=== PATIENT | male | born 1950 | race Caucasian/White ===

== ENCOUNTER 2018-09-21 12:11 | Observation (INO) ==
[2018-09-21] MEDS ORDERED: Morphine Sulfate Inj 2 MG/ML Vial IV.PUSH ONE ×2 (12:42→20:54)
[2018-09-21] MEDS ORDERED: Diphtheria/Tetanus/Pertussis Vaccine Inj 0.5 ML Syringe IM ONE (12:42)
--- NOTE | 2018-09-21 12:47 | ED ---
HPI General Chief complaint: Weakness Stated complaint: Fall Time Seen by Provider: 09/21/18 12:32 Source: patient, family, EMS and RN notes reviewed Mode of arrival: EMS History of Present Illness HPI narrative: 68yM presenting with fall and facial droop. The patient is visiting from [place] and says that he had a CVA in December of this year, took "a pill for a while but I don't have any more left" and cannot remember the name, and does not have a local PMD or neurologist. He has residual RLE weakness and slight left facial droop from this CVA and uses a cane to ambulate at baseline. As per his family, 2-3 days ago the patient began to have difficulty keeping food/ drink in his mouth and may have had a slight worsening of his left facial droop and some slurred speech since then. This morning, he attempted to get out of bed when his "legs gave out from under me", causing him to fall to the floor. He reports LLE weakness (new), which he attributes to "sciatica pain". He denies head injury or LOC, confusion, difficulty with word finding, visual disturbance, or numbness. He does not take aspirin or Plavix. He is unsure of when his last tetanus booster was. Related Data Home Medications Medication Instructions Recorded Confirmed finasteride [Proscar] 5 mg PO DAILY 09/21/18 09/21/18 gabapentin 600 mg PO DAILY 09/21/18 09/21/18 gemfibrozil [Lopid] 600 mg PO DAILY 09/21/18 09/21/18 insulin glargine [Lantus U-100 50 unit SUBCUT BID 09/21/18 09/21/18 Insulin] isosorbide mononitrate 30 mg PO DAILY 09/21/18 09/21/18 losartan-hydrochlorothiazide 1 tab PO DAILY 09/21/18 09/21/18 metformin 500 mg PO DAILY 09/21/18 09/21/18 simvastatin 40 mg PO QPM 09/21/18 09/21/18 Allergies Allergy/AdvReac Type Severity Reaction Status Date / Time No Known Allergies Allergy Verified 09/21/18 13:09 Review of Systems ROS: all other systems reviewed are negative PMFSH History History Provided By: Patient and Family Member Medical History Medical History Chronic pain (Acute) Diabetes (Acute) Diabetic neuropathy, type I diabetes mellitus (Acute) Elevated cholesterol (Acute) Sciatic leg pain (Acute) Hypertension (Acute) CVA (cerebral vascular accident) (Chronic) Surgical History Surgical History History of ankle surgery (Acute) Social History Social History Substance History: No History of Abuse Second Hand Smoke Exposure: No Smoking Status: Never smoker How Often Do You Have a Drink Containing Alcohol: Never Recent Travel in [facility] within the Last 8 Weeks: No Recent Out of Country Travel within the Last 8 Weeks: No Exam Const General: healthy appearing and no acute distress HENMT Head: normocephalic and atraumatic Face and sinus: normal facial exam Other: Well-healed scar to left orthodox (patient is unsure what this was from) Left-sided lower facial droop that spares eyebrows, mild dysarthria Tongue midline Eyes General: appearance normal, both eyes and all related structures Pupils: PERRL Chest Chest: normal inspection of the chest Resp Effort & Inspection: normal respiratory effort Auscultation: no rhonchi and no wheezes Cardio Rate: regular rate Rhythm: regular rhythm GI Inspection: non-distended Palpation: soft and nontender Skin Other: Abrasions to bilateral knees Neuro General: alert, awake and oriented x3 Other: Please see NIHSS as documented on arrival Answers questions appropriately, follows all commands Motor strength 5/5 in bilateral upper extremities, right hip/ knee flexion/ extension, bilateral foot plantar/dorsiflexion, 3+ to 4-/5 in left hip and knee flexion/ extension, no foot drop Sensation intact to bilateral lower extremities Psych Affect: normal affect Course Initial Documented Vital Signs Pulse Rate 67 09/21/18 12:40 Pulse Oximetry 98 09/21/18 12:40 Last Documented Vital Signs Temperature 98.1 F 09/21/18 12:51 Pulse Rate 61 09/21/18 15:07 Respiratory Rate 16 09/21/18 15:11 Blood Pressure 119/67 09/21/18 15:07 Pulse Oximetry 99 09/21/18 15:07 NIH Stroke Scale NIHSS Time Completed NIHSS Time Completed: 12:32 NIH Stroke Scale Level of Consciousness: 0-Alert Orientation Questions: 0-Answers both correct Responds to Commands: 0-Both tasks correct Gaze Eye Movement: 0-Horizontal movement WNL Visual Shepard: 0-No visual field defect Facial Movement: 2-Partial facial palsy Motor Functions Arm LEFT: 0-No drift Motor Functions Arm RIGHT: 0-No drift Motor Functions Leg LEFT: 2-Falls before 5 seconds Motor Functions Leg RIGHT: 0-No drift Limb Ataxia: 0-No ataxia Sensory Loss: 0-No sensory loss Best Language: 0-Normal Articulation: 1-Mild dysarthia Extinction or Inattention Sensory: 0-Absent Total: 5 Medical Decision Making MDM Narrative Medical decision making narrative: Assessment: 68yM presenting with fall, worsening facial droop/ dysarthria, left lower extremity weakness Plan: A stroke alert was NOT called as the onset of symptoms was 2-3 days ago EKG and monitor Labs CXR, X-ray bilateral knees CTH, CTA head and neck Addendum: Patient's workup shows no significant lab abnormalities, small non- stenotic lesion at left carotid bulb and old left thalamic infarct, otherwise no new abnormalities. The patient continues to have left-sided facial droop, dysarthria, and LLE weakness. He will need further workup including MRI brain. The patient and his niece understand and agree with plan. Case discussed with hospitalist service. Medical Screen Exam Complete: Yes Emergency Medical Condition: Yes Differential Diagnosis Differential Diagnosis: Differential diagnosis includes, but is not limited to: CVA, TIA, traumatic injury, arrhythmia. Symptoms not consistent with Montemayor's palsy. Lab Data Lab results reviewed: Yes I reviewed the patient's lab results. Result diagrams: 09/21/18 12:15 09/21/18 12:15 Lab Results 09/21/18 09/21/18 09/21/18 Range/Units 12:15 12:15 12:15 CBC w Diff Auto diff final WBC 9.2 (4.0-11.0) th/mm3 RBC 4.80 (4.50-5.90) mil/mm3 Hgb 12.9 L (13.0-17.0) gm/dL Hct 38.7 L (39.0-51.0) % MCV 80.6 (80.0-100.0) fL MCH 26.8 L (27.0-34.0) pg MCHC 33.3 (32.0-36.0) % RDW 12.4 (11.6-17.2) % Plt Count 340 (150-450) th/mm3 MPV 8.9 (7.0-11.0) fL Neut % (Auto) 67.5 (16.0-70.0) % Lymph % (Auto) 20.6 (9.0-44.0) % Robertson % (Auto) 9.5 H (0.0-8.0) % Eos % (Auto) 1.9 (0.0-4.0) % Baso % (Auto) 0.5 (0.0-2.0) % Neut # (Auto) 6.2 (1.8-7.7) th/mm3 Lymph # (Auto) 1.9 (1.0-4.8) th/mm3 Robertson # (Auto) 0.9 (0.0-0.9) th/mm3 Eos # (Auto) 0.2 (0.0-0.4) th/mm3 Baso # (Auto) 0.0 (0.0-0.2) th/mm3 WBC Differential . Differential Comment . PT 10.1 (9.8-11.6) sec INR 1.0 Ratio APTT 24.3 (23.4-31.7) sec Sodium 140 (136-145) meq/L Potassium 4.0 (3.5-5.1) meq/L Chloride 103 (98-107) meq/L Carbon Dioxide 29.4 (21.0-32.0) meq/L Anion Gap 8 (5-15) meq/L BUN 25 H (7-18) mg/dL Creatinine 1.20 (0.60-1.30) mg/dL Estimated GFR 60 L (>89) mL/min Random Glucose 94 (74-106) mg/dL Calcium 9.1 (8.5-10.1) mg/dL Total Creatine Kinase 81 (39-308) U/L Troponin I Less than 0.02 L (0.02-0.05) ng/mL Imaging Data Radiologist's impression: Chest X-Ray 09/21/18 12:42 CONCLUSION: No acute abnormality is seen. Head CT 09/21/18 12:42 CONCLUSION: 1. No acute abnormality is seen. 2. Mild atrophy. 3. Suspected old lacunar infarct at the left thalamus. . Head CTA 09/21/18 12:42 CONCLUSION: Negative CTA of the head. . Knee X-Ray 09/21/18 12:42 CONCLUSION: No acute abnormality is seen. Knee X-Ray 09/21/18 12:42 CONCLUSION: No acute abnormality. Neck CTA 09/21/18 12:42 CONCLUSION: Mild plaque at the carotid bulb regions without a significant stenosis. ECG Data Attestation: I personally reviewed and interpreted this ECG as follows: Interpretation: Rate: 62 BPM Rhythm: Sinus [place]: Left Intervals: Non-specific IVCD, QTc 410 ms Q waves: III, aVF T waves: Inverted in V4-V6 ST segments: No elevations or depressions Impression: Lateral ischemic changes, no previous EKG available for comparison. Discharge Plan Discharge Disposition Patient Disposition: ED Admit(ED Internal Use Only) Discharge Condition Condition: Stable Discharge Details Diagnosis: Facial droop, Dysarthria, Left leg weakness Physicians Team ED Provider: Jania Bey Primary Care Provider: UNKNOWN, Rxs /Orders / Referrals /Forms Prescriptions: No Action gabapentin 600 mg Tablet 600 mg PO DAILY RF: 0 isosorbide mononitrate 30 mg Tablet Extended Release 24 Hr 30 mg PO DAILY RF: 0 simvastatin 40 mg Tablet 40 mg PO QPM RF: 0 losartan-hydrochlorothiazide 100-25 mg Tablet 1 tab PO DAILY RF: 0 gemfibrozil [Lopid] 600 mg Tablet 600 mg PO DAILY RF: 0 finasteride [Proscar] 5 mg Tablet 5 mg PO DAILY RF: 0 metformin 500 mg Tablet 500 mg PO DAILY RF: 0 insulin glargine [Lantus U-100 Insulin] 100 unit/mL Solution 50 unit SUBCUT BID RF: 0 Discharge Interventions Interventions: Vital Signs Last Done: 09/21/18 15:07 Status ED Status: Pending Admission
[2018-09-21 13:00] LABS: Baso % (Auto) 0.5 % (0.0-2.0); Eos # (Auto) 0.2 th/mm3 (0.0-0.4); Eos % (Auto) 1.9 % (0.0-4.0); Hematocrit 38.7 % (39.0-51.0); Hemoglobin 12.9 gm/dL (13.0-17.0); Lymph # (Auto) 1.9 th/mm3 (1.0-4.8); Lymph % (Auto) 20.6 % (9.0-44.0); Mean Corpuscular HGB Conc 33.3 % (32.0-36.0); Mean Corpuscular Hemoglobin 26.8 pg (27.0-34.0); Mean Corpuscular Volume 80.6 fL (80.0-100.0); Mean Platelet Volume 8.9 fL (7.0-11.0); Mono # (Auto) 0.9 th/mm3 (0.0-0.9); Mono % (Auto) 9.5 % (0.0-8.0); Neut # (Auto) 6.2 th/mm3 (1.8-7.7); Neut % (Auto) 67.5 % (16.0-70.0); Platelet Count 340 th/mm3 (150-450); Red Cell Distribution Width 12.4 % (11.6-17.2); White Blood Count 9.2 th/mm3 (4.0-11.0)
[2018-09-21 13:14] LABS: Chloride 103 meq/L (98-107); Sodium 140 meq/L (136-145)
[2018-09-21 13:17] LABS: Anion Gap 8 meq/L (5-15); Calcium 9.1 mg/dL (8.5-10.1); Carbon Dioxide 29.4 meq/L (21.0-32.0); Glucose,Random 94 mg/dL (74-106)
[2018-09-21 13:18] LABS: Blood Urea Nitrogen 25 mg/dL (7-18)
[2018-09-21 13:21] LABS: Glomerular Filtration Rate 60 mL/min (>89)
[2018-09-21 13:29] LABS: Activated Partial Thrombo Time 24.3 sec (23.4-31.7); Prothrombin Time 10.1 sec (9.8-11.6)
--- NOTE | 2018-09-21 13:42 | XR ---
EXAM DATE: 09/21/2018 1:32 PM EST AGE/SEX: 68 years / Male INDICATIONS: Fall CLINICAL DATA: This is the patient's initial encounter. Patient reports that signs and symptoms have been present for 3 days and indicates a pain score of 10/10. MEDICAL/SURGICAL HISTORY: Non-responsive. Non-responsive. COMPARISON: No prior exams available for comparison. FINDINGS: The heart size is enlarged. The lungs are grossly clear. No effusion is seen. The bony structures lashawn ear grossly intact. CONCLUSION: No acute abnormality is seen. Electronically signed by: Jose Sears MD 09/21/2018 1:41 PM EST
--- NOTE | 2018-09-21 13:43 | XR ---
EXAM DATE: 09/21/2018 1:36 PM EST AGE/SEX: 68 years / Male INDICATIONS: Fall CLINICAL DATA: This is the patient's initial encounter. Patient reports that signs and symptoms have been present for 3 days and indicates a pain score of 10/10. MEDICAL/SURGICAL HISTORY: Non-responsive. Non-responsive. COMPARISON: . FINDINGS: The knee joint is normally aligned. No fracture is seen. No effusion is seen. There some spurring at the anterior aspect of the patella. There are spurs be some hypertrophic change or an osteochondroma off the posterior aspect of the proximal tibia. Vascular calcifications are seen. There are some hype rtrophic change at the anterior tibial tubercle. CONCLUSION: No acute abnormality is seen. Electronically signed by: Jose Sears MD 09/21/2018 1:42 PM EST
[2018-09-21 13:44] LABS: Creatine Kinase 81 U/L (39-308)
--- NOTE | 2018-09-21 13:45 | XR ---
EXAM DATE: 09/21/2018 1:37 PM EST AGE/SEX: 68 years / Male INDICATIONS: Fell CLINICAL DATA: This is the patient's initial encounter. Patient reports that signs and symptoms have been present for 3 days and indicates a pain score of 10/10. MEDICAL/SURGICAL HISTORY: Non-responsive. Non-responsive. COMPARISON: No prior exams available for comparison. FINDINGS: The knee joint is aligned. No fracture is seen. No effusion is seen. There is mild spurring at the an terior superior aspect of the patella. There also appears to be some hypertrophic change at the poste rior aspect of the tibia. Scattered vascular calcifications are seen. CONCLUSION: No acute abnormality. Electronically signed by: Jose Sears MD 09/21/2018 1:43 PM EST
[2018-09-21] MEDS: Sod Chloride 0.9% Inj 1,000 ML IV.CONT SCH (13:53)
--- NOTE | 2018-09-21 14:08 | CT ---
EXAM DATE: 09/21/2018 1:50 PM EST AGE/SEX: 68 years / Male INDICATIONS: Left sided facial droop. CLINICAL DATA: This is the patient's initial encounter. Patient reports that signs and symptoms have been present for 3 days and indicates a pain score of 0/10. MEDICAL/SURGICAL HISTORY: Cerebrovascular disease. Hypertension. None. RADIATION DOSE: 58.69 CTDI (mGy) COMPARISON: No prior exams available for comparison. TECHNIQUE: CT of the head without contrast. Using automated exposure control and adjustment of the mA and/or kV according to patient size, radiation dose was kept as low as reasonably achievable to ob tain optimal diagnostic quality images. DICOM format image data is available electronically for revi ew and comparison. FINDINGS: Cerebrum: The ventricles are normal for age. There is some widening of the cortical sulci. There ap pears to be an old lacunar infarct at the left thalamus. No evidence of midline shift, mass lesion, h emorrhage or acute infarction. No extraaxial fluid collections are seen. Posterior Fossa: The cerebellum and brainstem are intact. The 4th ventricle is midline. The cerebe llopontine angle is unremarkable. Extracranial: The visualized portion of the orbits is intact. Skull: The calvaria is intact. No evidence of skull fracture. CONCLUSION: 1. No acute abnormality is seen. 2. Mild atrophy. 3. Suspected old lacunar infarct at the left thalamus. . Electronically signed by: Jose Sears MD 09/21/2018 2:07 PM EST
--- NOTE | 2018-09-21 14:23 | CT ---
EXAM DATE: 09/21/2018 2:19 PM EST AGE/SEX: 68 years / Male INDICATIONS: Left sided facial droop. CLINICAL DATA: This is the patient's initial encounter. Patient reports that signs and symptoms have been present for 3 days and indicates a pain score of 0/10. MEDICAL/SURGICAL HISTORY: Cerebrovascular disease. Hypertension. None. RADIATION DOSE: 56.54 CTDI (mGy) ; Combined studies ; Patient body habitus COMPARISON: No prior exams available for comparison. TECHNIQUE: Volumetric scanning was performed using a multi-row detector CT scanner during bolus infu ky of 85 ml Visipaque 320 (iodixanol) nonionic water-soluble contrast as a cumulative dose for mul tiple exams. The data was post processed with a variety of visualization algorithms including full volume maximum intensity projection, multi-planar sliding thin slab reformation, curved planar reform ation, and surface rendering techniques. Using automated exposure control and adjustment of the mA a nd/or kV according to patient size, radiation dose was kept as low as reasonably achievable to obtain optimal diagnostic quality images. DICOM format image data is available electronically for review a nd comparison. FINDINGS: There is excellent visualization of the major intracranial arteries out to the second-order branch ve ssels. There is no evidence for aneurysm, vessel truncation or stenosis, and no evidence for vascula r malformation. CONCLUSION: Negative CTA of the head. . Electronically signed by: Jose Sears MD 09/21/2018 2:22 PM EST
--- NOTE | 2018-09-21 14:36 | CT ---
EXAM DATE: 09/21/2018 2:31 PM EST AGE/SEX: 68 years / Male INDICATIONS: Left sided facial droop. CLINICAL DATA: This is the patient's initial encounter. Patient reports that signs and symptoms have been present for 3 days and indicates a pain score of 0/10. MEDICAL/SURGICAL HISTORY: Cerebrovascular disease. Hypertension. None. RADIATION DOSE: 56.54 CTDI (mGy) ; Combined studies COMPARISON: No prior exams available for comparison. TECHNIQUE: Volumetric scanning was performed using a multirow detector CT scanner during bolus infus ion of 85 ml Visipaque 320 (iodixanol) nonionic water-soluble contrast as a cumulative dose for mult iple exams. The data was postprocessed with a variety of visualization algorithms including full-vo lume maximum intensity projection, multiplanar sliding thin-slab reformation, curved-planar reformati on, and surface-rendering techniques. Using automated exposure control and adjustment of the mA and/ or kV according to patient size, radiation dose was kept as low as reasonably achievable to obtain op timal diagnostic quality images. DICOM format image data is available electronically for review and comparison. FINDINGS: Aortic Arch: There is a three-vessel origin of the great vessels from the aorta. No evidence of ost ial narrowing. The left vertebral artery arises directly from the aorta just proximal to the left sub clavian artery. This is a normal variant. Right Carotid: The common carotid artery is intact. There is mild calcified plaque at the carotid bu lb region without a significant stenosis. The internal carotid artery lumen is smooth without stenosi s. The external carotid artery is intact. Left Carotid: The common carotid artery is intact. There is mild calcified plaque at the carotid bu lb region without a significant stenosis. The internal carotid artery lumen is smooth without stenos is. The external carotid artery is intact. Vertebrals: The vertebral arteries have a symmetric diameter. No stenotic lesions are seen. Percent stenosis is calculated using the diameter of the stenotic region over the diameter of the nor mal distal internal carotid artery. CONCLUSION: Mild plaque at the carotid bulb regions without a significant stenosis. Electronically signed by: Jose Sears MD 09/21/2018 2:34 PM EST
[2018-09-21] MEDS ORDERED: Dextrose 50% in Water 50 ML Vial IV.PUSH PRN (15:38)
--- NOTE | 2018-09-21 15:55 | P.HP ---
History of Present Illness Primary Care Physician: UNKNOWN Chief Complaint: Fall at home History of Present Illness: 68-year-old male with known history of CVA, hypertension, hyperlipidemia, diabetes, chronic back pain who presented to the hospital for evaluation of fall at home today. Patient does not speak much Sami, information was taken from medical records, nursing staff, interpreted by Enrrique zheng. Patient does have a long-standing history of chronic medical illnesses with chronic back pain, recent stroke in December of this year. Patient is originally from [place] and is here at this time. Apparently he has been having problems with his chronic back pain and he went to [facility] week ago in [place] was discharged home. Then roughly 3 days ago he noticed that he had worsening neurological symptoms with difficulty in speech, difficulty eating and swallowing food, weakness of the left upper and lower extremities. Patient's previous stroke left him with residual weakness of the right upper and lower extremities. As indicated by ER physician that family said that they noted she was not able to keep food in his mouth and water was dripping out of his mouth. However patient was trying to walk today and he fell so they brought him to the hospital for evaluation. Patient had CT scans done which were unremarkable for any acute stroke. It is recommended that the patient be admitted the hospital for further neurological workup. - Diagnosis (1) Acute CVA (cerebrovascular accident) (2) Facial droop (3) Dysarthria (4) Left leg weakness Review of Systems All other systems reviewed negative except as stated in HPI Ears, Nose, Mouth, and Throat: Reports difficulty swallowing Musculoskeletal: Reports abnormal walking, Reports back pain, Reports muscle weakness Neurologic: Reports abnormal speech, Reports abnormal walking, Reports lack of coordination, Reports localized weakness PMFSH - History History Provided By: Patient - Medical History Medical History: Medical History (Last Reviewed 09/21/18 @ 15:44 by JV Ko) Chronic pain Diabetes Diabetic neuropathy, type I diabetes mellitus Elevated cholesterol Sciatic leg pain Hypertension CVA (cerebral vascular accident) - Surgical History Surgical History: Surgical History (Last Reviewed 09/21/18 @ 15:44 by JV Ko) History of ankle surgery - Family History Family History: Family History (Last Reviewed 09/21/18 @ 15:44 by JV Ko) Other Family history of colon cancer Family history of diabetes mellitus - Tobacco History Second Hand Smoke Exposure: No Tobacco Use In Past 30 Days: No Smoking Status: Never smoker - Alcohol History How Often Do You Have a Drink Containing Alcohol: Never - Substance Use History Substance History: No History of Abuse - Travel History Recent Travel in the [place] Within the Last 8 Weeks: No Recent Travel Out of the Country Within the Last 8 Weeks: No - Immunization History Tetanus Immunization: >5 Years Medications and Allergies Active Medications: Active Medications Sodium Chloride (Ns Inj) 1,000 mls @ 70 mls/hr IV.CONT .[id number] MJ Last Admin: 09/21/18 13:53 Dose: 70 mls/hr Allergies Allergy/AdvReac Type Severity Reaction Status Date / Time No Known Allergies Allergy Verified 09/21/18 13:09 Home Medications Medication Instructions Recorded Confirmed Type finasteride [Proscar] 5 mg PO DAILY 09/21/18 09/21/18 History gabapentin 600 mg PO DAILY 09/21/18 09/21/18 History gemfibrozil [Lopid] 600 mg PO DAILY 09/21/18 09/21/18 History insulin glargine [Lantus U-100 50 unit SUBCUT BID 09/21/18 09/21/18 History Insulin] isosorbide mononitrate 30 mg PO DAILY 09/21/18 09/21/18 History losartan-hydrochlorothiazide 1 tab PO DAILY 09/21/18 09/21/18 History metformin 500 mg PO DAILY 09/21/18 09/21/18 History simvastatin 40 mg PO QPM 09/21/18 09/21/18 History Exam Vital signs: Vital Signs 09/21/18 12:40 09/21/18 12:51 09/21/18 14:00 Temperature 98.1 F Pulse Rate 67 66 70 Respiratory Rate 16 16 Blood Pressure 138/75 144/62 H Pulse Oximetry 98 98 99 09/21/18 15:07 09/21/18 15:11 Temperature Pulse Rate 61 Respiratory Rate 16 16 Blood Pressure 119/67 Pulse Oximetry 99 Intake & Output 09/20/18 09/21/18 09/21/18 18:59 06:59 18:59 Weight 110 kg Narrative: GENERAL: Well-developed, well-nourished, in no acute distress. alert and orientated HEENT: Head is normocephalic without any lesions or masses noted. Obvious left facial droop. Eyes: Pupils equal round reactive to light. Extraocular muscles are intact. Conjunctivae were clear. Oropharyngeal: Pharynx without any erythema edema tongue deviates to the left. Buccal mucosa is moist without any masses or lesions NECK: Supple without any masses. Trachea midline no deviation. No JVD, no bruits are appreciated CARDIAC: Regular rhythm, regular rate. S1/S2 are heard. No murmurs gallops or rubs. LUNGS: Clear to auscultation bilaterally. No wheeze, rhonchi or rales. No use of accessory muscles on inspiration or expiration. ABDOMEN: Soft, nontender. Nondistended. Bowel sounds heard in all 4 quadrants. No organomegaly or masses. Negative rebound, negative guarding EXTREMITIES: No edema, pulses are equal bilaterally. No cyanosis or clubbing NEUROLOGY: Mood and affect appear appropriate. 4/5 strength in the right upper and lower extremities. 2/5 strength in the left upper and lower extremities. Results - Labs CBC & Chem 7: 09/21/18 12:15 09/21/18 12:15 Labs: Laboratory Results - last 24 hr 09/21/18 09/21/18 09/21/18 12:15 12:15 12:15 CBC w Diff Auto diff final WBC 9.2 RBC 4.80 Hgb 12.9 L Hct 38.7 L MCV 80.6 MCH 26.8 L MCHC 33.3 RDW 12.4 Plt Count 340 MPV 8.9 Neut % (Auto) 67.5 Lymph % (Auto) 20.6 [place] % (Auto) 9.5 H Eos % (Auto) 1.9 Baso % (Auto) 0.5 Neut # (Auto) 6.2 Lymph # (Auto) 1.9 [place] # (Auto) 0.9 Eos # (Auto) 0.2 Baso # (Auto) 0.0 WBC Differential . Differential Comment . PT 10.1 INR 1.0 APTT 24.3 Sodium 140 Potassium 4.0 Chloride 103 Carbon Dioxide 29.4 Anion Gap 8 BUN 25 H Creatinine 1.20 Estimated GFR 60 L Random Glucose 94 Calcium 9.1 Total Creatine Kinase 81 Troponin I Less than 0.02 L - Imaging Impressions Chest X-Ray 09/21/18 12:42 CONCLUSION: No acute abnormality is seen. Head CT 09/21/18 12:42 CONCLUSION: 1. No acute abnormality is seen. 2. Mild atrophy. 3. Suspected old lacunar infarct at the left thalamus. . Head CTA 09/21/18 12:42 CONCLUSION: Negative CTA of the head. . Knee X-Ray 09/21/18 12:42 CONCLUSION: No acute abnormality is seen. Knee X-Ray 09/21/18 12:42 CONCLUSION: No acute abnormality. Neck CTA 09/21/18 12:42 CONCLUSION: Mild plaque at the carotid bulb regions without a significant stenosis. Caprini VTE Risk Assessment Caprini VTE Risk Assessment: Moderate/High Risk (score >= 2) Caprini Risk Assessment Model: Point Value = 1 Point Value = 2 Point Value = 3 Point Value = 5 Age 41-60 Minor surgery BMI > 25 kg/m2 Swollen legs Varicose veins or History of unexplained or recurrent spontaneous Oral contraceptives or hormone replacement Sepsis (< 1 month) Serious lung disease, including pneumonia (< 1 month) Abnormal pulmonary function Acute myocardial infarction Congestive heart failure (< 1 month) History of inflammatory bowel disease Medical patient at bed rest Age 61-74 Arthroscopic surgery Major open surgery (> 45 min) Laparoscopic surgery (> 45 min) Malignancy Confined to bed (> 72 hours) Immobilizing plaster cast Central venous access Age >= 75 History of VTE Family history of VTE Factor V Leiden Prothrombin [id number] Lupus anticoagulant Anticardiolipin antibodies Elevated serum homocysteine Heparin-induced thrombocytopenia Other congenital or acquired thrombophilia Stroke (< 1 month) Elective arthroplasty Hip, pelvis, or leg fracture Acute spinal cord injury (< 1 month) Prophylaxis Regimen: Total Risk Factor Score Risk Level Prophylaxis Regimen 0-1 Low Early ambulation 2 Moderate Order ONE of the following: *Sequential Compression Device (SCD) *Heparin 5000 units SQ BID 3-4 Higher Order ONE of the following medications: *Heparin 5000 units SQ TID *Enoxaparin/Lovenox 40 mg SQ daily (WT < 150 kg, CrCl > 30 mL/min) *Enoxaparin/Lovenox 30 mg SQ daily (WT < 150 kg, CrCl > 10-29 mL/min) *Enoxaparin/Lovenox 30 mg SQ BID (WT < 150 kg, CrCl > 30 mL/min) AND/OR *Sequential Compression Device (SCD) 5 or more Highest Order ONE of the following medications: *Heparin 5000 units SQ TID (Preferred with Epidurals) *Enoxaparin/Lovenox 40 mg SQ daily (WT < 150 kg, CrCl > 30 mL/min) *Enoxaparin/Lovenox 30 mg SQ daily (WT < 150 kg, CrCl > 10-29 mL/min) *Enoxaparin/Lovenox 30 mg SQ BID (WT < 150 kg, CrCl > 30 mL/min) AND *Sequential Compression Device (SCD) Assessment and Plan - Assessment (1) Acute CVA (cerebrovascular accident) Code(s): I63.9 - Cerebral infarction, unspecified Status: Acute (2) Facial droop Code(s): R29.810 - Facial weakness Status: Acute (3) Dysarthria Code(s): R47.1 - Dysarthria and anarthria Status: Acute (4) Left leg weakness Code(s): R29.898 - Other symptoms and signs involving the musculoskeletal system Status: Acute - Plan Acute CVA -Patient presented with 3-day history of left-sided weakness, dysphagia, dysarthria -Patient does have history of CVA in December 2017, patient is not on any antiplatelet treatment at this time. Patient did have residual symptoms of right-sided weakness. -CT of the brain did indicate an old lacunar infarct in the left thalamus, nothing acute -CTA of the head and neck does not indicate any acute abnormality -Awaiting MRI of the brain for further evaluation -We will request echocardiogram -We will check further laboratory studies to include B12, folate, sed rate, TSH , hemoglobin A1c, lipid panel, RPR -PT/OT/ST evaluations Diabetes -Awaiting hemoglobin A1c -We will start diabetic diet once cleared by speech therapy -Accu-Cheks with sliding scale insulin Hypertension, hyperlipidemia -Awaiting lipid panel -Resume statin Chronic back pain -Resume home medications DVT prevention -Sequential compression devices
[2018-09-21] MEDS: Aspirin 325 MG Tablet PO SCH (16:22)
--- NOTE | 2018-09-21 17:03 | MR ---
EXAM DATE: 09/21/2018 4:56 PM EST AGE/SEX: 68 years / Male INDICATIONS: Left sided weakness. Left facial droop. CLINICAL DATA: This is the patient's initial encounter. Patient reports that signs and symptoms have been present for 1 day and indicates a pain score of 0/10. MEDICAL/SURGICAL HISTORY: Diabetes mellitus type II. Hypertension. Hypercholesterolemia. Tons illectomy. COMPARISON: [facility], CT HEAD W/O CONTRAST, 09/21/2018. . TECHNIQUE: Multiplanar, multisequence examination of the brain was performed without contrast. FINDINGS: Cerebrum: There is an area of acute infarction seen at the posterior limb of the internal capsule on the right side measuring 1.1 x 0.5 cm. There is an old lacunar infarct at the left thalamus. The cor tical sulci are widened. The ventricles are normal for age. No evidence of midline shift, mass lesio n, hemorrhage or acute infarction. No extraaxial fluid collections are seen. The pituitary gland an d suprasellar cistern are normal in configuration. White Matter: There are scattered areas of increased signal seen in the cerebral white matter Posterior Fossa: The cerebellum and brainstem are intact. The 4th ventricle is midline. The cerebel lopontine angle is unremarkable. The cerebellar tonsils are normal in position. Diffusion Imaging: Again noted is the focal area of acute infarction at the posterior limb of the ri ght internal capsule. Extracranial: The visualized portions of the orbits and paranasal sinuses are unremarkable. There ar e scattered areas of increased signal seen within the mastoid air cells. CONCLUSION: 1. Small area of acute infarction involving the posterior limb of the internal capsule on the right. 2. Old lacunar infarct at the left thalamus. 3. Mild atrophy. 4. Scattered areas of demyelination likely secondary to small vessel ischemic change. Electronically signed by: Jose Sears MD 09/21/2018 5:02 PM EST
[2018-09-21 18:50] LABS: Creatine Kinase 109 U/L (39-308)
[2018-09-21] MEDS ORDERED: Sodium Chlor 0.9% Inj 500 ML IV.SIG SCH (22:13)
[2018-09-22 00:25] LABS: Bilirubin,Urine Negative (Negative); Clarity,Urine Clear (Clear); Color,Urine Yellow (Yellw/Straw); Glucose,Urine (UA) Negative (Negative); Nitrite,Urine Negative (Negative); PH,Urine 5.5 (5.0-8.5)
[2018-09-22 00:26] LABS: Leukocyte Esterase,Urine Negative (Negative); RBC,Urine 0-3 /hpf (0-3); Squamous Epithelial Cell,Urine 0-5 /hpf (0-5); Urobilinogen,Urine 0.2 mg/dL (Less than 2); WBC,Urine 0-5 /hpf (0-5)
[2018-09-22 00:34] LABS: Creatine Kinase 116 U/L (39-308)
[2018-09-22] MEDS: Sod Chloride 0.9% Inj 1,000 ML IV.CONT SCH ×2 (04:10→20:39)
[2018-09-22] MEDS: Morphine Sulfate Inj 2 MG/ML Vial IV.PUSH PRN ×6 (04:55→23:55)
--- NOTE | 2018-09-22 10:06 | P.PNIM ---
Subjective Interval history: 68-year-old [place] male who was seen examined today for follow-up on acute CVA. Patient still with significant left-sided weakness, left facial droop. Patient still undergoing neurological workup at this time. In light of stroke. Patient remains afebrile. Physical Exam Vital signs: Vital Signs 09/21/18 12:40 09/21/18 12:51 09/21/18 14:00 Temperature 98.1 F Pulse Rate 67 66 70 Respiratory Rate 16 16 Blood Pressure 138/75 144/62 H Pulse Oximetry 98 98 99 09/21/18 15:07 09/21/18 15:11 09/21/18 15:58 Temperature Pulse Rate 61 62 Respiratory Rate 16 16 Blood Pressure 119/67 Pulse Oximetry 99 09/21/18 16:01 09/21/18 16:31 09/21/18 18:23 Temperature Pulse Rate 67 63 58 L Respiratory Rate 16 16 Blood Pressure 101/72 133/72 Pulse Oximetry 96 99 09/21/18 20:00 09/21/18 21:38 09/22/18 00:00 Temperature 96.3 F L 97.3 F L 96.6 F L Pulse Rate 62 63 61 Respiratory Rate 20 20 20 Blood Pressure 140/69 123/64 181/87 H Pulse Oximetry 97 96 98 09/22/18 01:38 09/22/18 03:38 09/22/18 04:00 Temperature 96.7 F L 97.6 F Pulse Rate 60 67 62 Respiratory Rate 20 20 Blood Pressure 179/88 H 176/79 H Pulse Oximetry 98 98 09/22/18 05:38 09/22/18 08:00 Temperature 97.0 F L Pulse Rate 65 65 Respiratory Rate 20 Blood Pressure 167/69 H Pulse Oximetry Intake & Output 09/21/18 09/22/18 09/22/18 18:59 06:59 18:59 Intake Total 0 / 0 1500 / 1500 Output Total 0 / 0 700 / 700 Balance 0 / 0 800 / 800 Weight 112.7 kg 113.3 kg Intake: IV 1500 / 1500 NS Inj 1,000 ML @ 70 mls/hr IV. 1000 / 1000 CONT .[id number] MJ Rx#: [id number] NS Inj 500 ML @ 1000 mls/hr IV. 500 / 500 SIG BOLUS MJ Rx#:[id number] Oral 0 / 0 Output: Urine 0 / 0 700 / 700 Other: # Voids 3 Date of Last Bowel Movement 09/20/18 09/20/18 09/20/18 Weight On Admission 109.769 kg Narrative: GENERAL: Well-developed, well-nourished, in no acute distress. alert and orientated HEENT: Head is normocephalic without any lesions or masses noted. Obvious left facial droop. Eyes: Extraocular muscles are intact. Conjunctivae were clear. Oropharyngeal: Pharynx without any erythema edema tongue deviates to the left. Buccal mucosa is moist without any masses or lesions NECK: Supple without any masses. Trachea midline no deviation. No JVD CARDIAC: Regular rhythm, regular rate. S1/S2 are heard. No murmurs gallops or rubs. LUNGS: Clear to auscultation bilaterally. No wheeze, rhonchi or rales. No use of accessory muscles on inspiration or expiration. ABDOMEN: Soft, nontender. Nondistended. Bowel sounds heard in all 4 quadrants. No organomegaly or masses. Negative rebound, negative guarding EXTREMITIES: No edema, pulses are equal bilaterally. No cyanosis or clubbing NEUROLOGY: Mood and affect appear appropriate. 4/5 strength in the right upper and lower extremities. 2/5 strength in the left upper and lower extremities. Results - Labs CBC & Chem 7: 09/21/18 12:15 09/21/18 12:15 Laboratory Results - last 24 hr 09/21/18 09/21/18 09/21/18 12:15 12:15 12:15 CBC w Diff Auto diff final WBC 9.2 RBC 4.80 Hgb 12.9 L Hct 38.7 L MCV 80.6 MCH 26.8 L MCHC 33.3 RDW 12.4 Plt Count 340 MPV 8.9 Neut % (Auto) 67.5 Lymph % (Auto) 20.6 [place] % (Auto) 9.5 H Eos % (Auto) 1.9 Baso % (Auto) 0.5 Neut # (Auto) 6.2 Lymph # (Auto) 1.9 [place] # (Auto) 0.9 Eos # (Auto) 0.2 Baso # (Auto) 0.0 WBC Differential . Differential Comment . PT 10.1 INR 1.0 APTT 24.3 Sodium 140 Potassium 4.0 Chloride 103 Carbon Dioxide 29.4 Anion Gap 8 BUN 25 H Creatinine 1.20 Estimated GFR 60 L POC Glucose Random Glucose 94 Calcium 9.1 Total Creatine Kinase 81 Troponin I Less than 0.02 L Urine Color Urine Clarity Urine pH Ur Specific [place] Urine Protein Urine Glucose (UA) Urine Ketones Urine Occult Blood Urine Nitrate Urine Bilirubin Urine Urobilinogen Ur Leukocyte Esterase Urine RBC Urine WBC Ur Squamous Epith Cells Micro UA Comment Ur Microscopic Review Urine Culture Comments 09/21/18 09/21/18 09/21/18 17:45 18:20 22:09 CBC w Diff WBC RBC Hgb Hct MCV MCH MCHC RDW Plt Count MPV Neut % (Auto) Lymph % (Auto) [place] % (Auto) Eos % (Auto) Baso % (Auto) Neut # (Auto) Lymph # (Auto) [place] # (Auto) Eos # (Auto) Baso # (Auto) WBC Differential Differential Comment PT INR APTT Sodium Potassium Chloride Carbon Dioxide Anion Gap BUN Creatinine Estimated GFR POC Glucose 87 93 Random Glucose Calcium Total Creatine Kinase 109 Troponin I Less than 0.02 L Urine Color Urine Clarity Urine pH Ur Specific [place] Urine Protein Urine Glucose (UA) Urine Ketones Urine Occult Blood Urine Nitrate Urine Bilirubin Urine Urobilinogen Ur Leukocyte Esterase Urine RBC Urine WBC Ur Squamous Epith Cells Micro UA Comment Ur Microscopic Review Urine Culture Comments 09/22/18 09/22/18 00:00 00:00 CBC w Diff WBC RBC Hgb Hct MCV MCH MCHC RDW Plt Count MPV Neut % (Auto) Lymph % (Auto) [place] % (Auto) Eos % (Auto) Baso % (Auto) Neut # (Auto) Lymph # (Auto) [place] # (Auto) Eos # (Auto) Baso # (Auto) WBC Differential Differential Comment PT INR APTT Sodium Potassium Chloride Carbon Dioxide Anion Gap BUN Creatinine Estimated GFR POC Glucose Random Glucose Calcium Total Creatine Kinase 116 Troponin I Less than 0.02 L Urine Color Yellow Urine Clarity Clear Urine pH 5.5 Ur Specific [place] 1.020 Urine Protein Trace Urine Glucose (UA) Negative Urine Ketones Negative Urine Occult Blood Negative Urine Nitrate Negative Urine Bilirubin Negative Urine Urobilinogen 0.2 Ur Leukocyte Esterase Negative Urine RBC 0-3 Urine WBC 0-5 Ur Squamous Epith Cells 0-5 Micro UA Comment Culture not ind Ur Microscopic Review Microscopic reviewed Urine Culture Comments Culture not ind - Imaging Impressions Chest X-Ray 09/21/18 12:42 CONCLUSION: No acute abnormality is seen. Head CT 09/21/18 12:42 CONCLUSION: 1. No acute abnormality is seen. 2. Mild atrophy. 3. Suspected old lacunar infarct at the left thalamus. . Head CTA 09/21/18 12:42 CONCLUSION: Negative CTA of the head. . Knee X-Ray 09/21/18 12:42 CONCLUSION: No acute abnormality is seen. Knee X-Ray 09/21/18 12:42 CONCLUSION: No acute abnormality. Neck CTA 09/21/18 12:42 CONCLUSION: Mild plaque at the carotid bulb regions without a significant stenosis. Head MRI 09/21/18 14:53 CONCLUSION: 1. Small area of acute infarction involving the posterior limb of the internal capsule on the right. 2. Old lacunar infarct at the left thalamus. 3. Mild atrophy. 4. Scattered areas of demyelination likely secondary to small vessel ischemic change. Assessment and Plan - Assessment (1) Acute CVA (cerebrovascular accident) Code(s): I63.9 - Cerebral infarction, unspecified Status: Acute (2) Facial droop Code(s): R29.810 - Facial weakness Status: Acute (3) Dysarthria Code(s): R47.1 - Dysarthria and anarthria Status: Acute (4) Left leg weakness Code(s): R29.898 - Other symptoms and signs involving the musculoskeletal system Status: Acute - Plan Acute CVA -Patient presented with 3-day history of left-sided weakness, dysphagia, dysarthria -Patient does have history of CVA in December 2017, patient is not on any antiplatelet treatment at this time. Patient did have residual symptoms of right-sided weakness. -CT of the brain did indicate an old lacunar infarct in the left thalamus, nothing acute -CTA of the head and neck does not indicate any acute abnormality -MRI of the brain indicated small area of acute infarction involving the posterior limb of the internal capsule on the right. -Awaiting echocardiogram -Neurology is consulted for further recommendations -We will check further laboratory studies to include B12, folate, sed rate, TSH , hemoglobin A1c, lipid panel, RPR -PT/OT/ST evaluations -Holter monitor -Given the patient has had a previous left-sided stroke and now with a right- sided stroke, if echocardiogram is unremarkable may need to have a DAVID, as well as patient may need loop recorder placement -Continue full dose aspirin Diabetes -Awaiting hemoglobin A1c -We will start diabetic diet once cleared by speech therapy -Accu-Cheks with sliding scale insulin Hypertension, hyperlipidemia -Awaiting lipid panel -Resume statin Chronic back pain -Resume home medications DVT prevention -Sequential compression devices
[2018-09-22] MEDS: Gabapentin 300 MG Capsule PO SCH (10:21)
[2018-09-22] MEDS: Gemfibrozil 600 MG Tablet PO SCH (10:21)
[2018-09-22] MEDS: Isosorbide Mononitrate 30 MG ER 24HR Tablet (Imdur) PO SCH (10:21)
[2018-09-22] MEDS: Finasteride 5 MG Tablet PO SCH (10:22)
[2018-09-22] MEDS: Aspirin 325 MG Tablet PO SCH (10:22)
[2018-09-22 10:25] LABS: Chol/HDL Ratio 4.47 Ratio
--- NOTE | 2018-09-22 10:37 | ECHRPT ---
Indication: CVA/TIA CONCLUSIONS Normal left ventricular size. Mild concentric left ventricular hypertrophy. The left ventricular systolic function is normal with an estimated ejection fraction in the range of 55-60%. No definite regional wall motion abnormalities are present. Trileaflet aortic valve. Minimal aortic valve sclerosis is present. There is trace tricuspid valve regurgitation. The estimated pulmonary arterial pressure is 35 mmHg. BP: / HR: Rhythm: MEASUREMENTS (Male / Female) Normal Values Technical Quality:Fair 2D ECHO LV Diastolic Diameter PLAX 5.3 cm 4.2 - 5.9 / 3.9 - 5.3 cm LV Systolic Diameter PLAX 3.4 cm IVS Diastolic Thickness 1.2 cm 0.6 - 1.0 / 0.6 - 0.9 cm LVPW Diastolic Thickness 1.1 cm 0.6 - 1.0 / 0.6 - 0.9 cm LV Relative Wall Thickness 0.4 RV Internal Dim ED PLAX 3.1 cm LVOT Diameter 2.1 cm Aortic Root Diameter 3.5 cm LA Systolic Diameter LX 3.6 cm 3.0 - 4.0 / 2.7 - 3.8 cm M-MODE AV Cusp Separation MM 1.9 cm DOPPLER AV Peak Velocity 124.0 cm/s AV Peak Gradient 6.2 mmHg LVOT Peak Velocity 100.0 cm/s LVOT Peak Gradient 4.0 mmHg AV Area Cont Eq pk 2.8 cm Mitral E Point Velocity 78.5 cm/s Mitral A Point Velocity 104.0 cm/s Mitral E to A Ratio 0.8 LV E' Lateral Velocity 6.7 cm/s Mitral E to LV E' Lateral Ratio 11.7 LV E' Septal Velocity 4.9 cm/s Mitral E to LV E' Septal Ratio 16.1 TR Peak Velocity 251.0 cm/s TR Peak Gradient 25.2 mmHg Right Atrial Pressure 10.0 mmHg Pulmonary Artery Systolic Pressu 35.2 mmHg Right Ventricular Systolic Press 35.2 mmHg PV Peak Velocity 96.4 cm/s PV Peak Gradient 3.7 mmHg FINDINGS LEFT VENTRICLE Normal left ventricular size. Mild concentric left ventricular hypertrophy. The left ventricular systolic function is normal with an estimated ejection fraction in the range of 55-60%. No definite regional wall motion abnormalities are present. RIGHT VENTRICLE Normal right ventricular size and systolic function. LEFT ATRIUM The left atrial size is normal. RIGHT ATRIUM The right atrial size is normal. ATRIAL SEPTUM Normal atrial septal thickness without atrial level shunting by limited color doppler interrogation. AORTA The aortic root and proximal ascending aorta are normal in size on limited imaging. MITRAL VALVE Trace mitral valve regurgitation. AORTIC VALVE Trileaflet aortic valve. Minimal aortic valve sclerosis is present. TRICUSPID VALVE There is trace tricuspid valve regurgitation. The estimated pulmonary arterial pressure is 35 mmHg. PULMONARY VALVE No pulmonary valve regurgitation or stenosis. VESSELS The inferior vena cava is normal in size. PERICARDIUM There is a small pericardial effusion present. Compa Orta MD (Electronically Signed) Final Date:22 September 2018 10:35
[2018-09-22 11:04] LABS: Vitamin B12 301 pg/mL (193-986)
[2018-09-22 17:09] LABS: Hemoglobin A1c 13.3 % (4.3-6.0)
[2018-09-22] MEDS: Insulin NovoLOG Aspart Correctional Sugar Inj SQ PRN (20:41)
[2018-09-23] MEDS: Morphine Sulfate Inj 2 MG/ML Vial IV.PUSH PRN ×3 (04:39→21:04)
[2018-09-23] MEDS: Insulin NovoLOG Aspart Correctional Sugar Inj SQ PRN ×4 (07:24→21:05)
--- NOTE | 2018-09-23 07:33 | MB ---
cc: Janet Beatty MD DATE: 09/22/2018 REASON FOR CONSULTATION: Stroke. HISTORY OF PRESENT ILLNESS: This is a 68-year-old gentleman with a history of prior stroke, hypertension, hyperlipidemia, diabetes, chronic back pain; comes in because he started having some left-sided deficits, having trouble speaking. Apparently had a stroke in December when he was in [place]. I do not believe he takes aspirin. He had a new stroke in the right internal capsule on his recent MRI here in the hospital. SOCIAL HISTORY: He does not smoke or drink. MEDICATIONS: Medicines at home, please refer to the MAR, but is on: 1. Proscar. 2. Gabapentin. 3. Lopid. 4. Lantus. 5. Isosorbide mononitrate. 6. Losartan. 7. Hydrochlorothiazide. 8. Metformin. 9. Simvastatin. PHYSICAL EXAMINATION: VITAL SIGNS: Temperature 96.7, pulse 65, respiratory rate 20, blood pressure 168/83. NECK: Supple. HEART: Regular. NEUROLOGIC: He is awake and alert. Some mild dysarthria, mild left facial asymmetry. Visual mac are full. Tongue midline. Facial sensation normal. Motor: He does exhibit a mild drift left arm and left leg 4/5 proximally and distally. Sensory is normal. DTRs are trace to 1+. Toes withdraws. Cerebellar normal. Random movements, fine motor movements slower on the left then on the right. IMAGING STUDIES: 1. His echo shows EF of 55-60%. 2. MRI brain shows small acute infarct posterior limb of the internal capsule on the right and old lacune in the left thalamus with atrophy and white matter disease. 3. His neck CTA did not show any stenosis. 4. Head CTA: [place] without any intracranial disease. LABORATORY DATA: Sedimentation rate 19, hemoglobin 12.9. Chemistries: Triglycerides 190, cholesterol 215, LDL 129, HDL 48. B12 is 301. IMPRESSION: 1. A 68-year-old man with a history of diabetes. Hemoglobin A1c is still pending. 2. Hypertension. 3. Hyperlipidemia. 4. Stroke. Stroke is what is actually the admitting diagnosis. RECOMMENDATIONS: Recommend placing him on aspirin therapy, full dose. Start him on a statin. LDL should be below 70. Depending on what his hemoglobin A1c is, diabetes needs to be managed. Start controlling his blood pressure. Start him on B12 1000 mcg p.o. daily. PT, OT, speech therapy assessment. If he already has a bed at [facility] from my perspective, he can be discharged to rehab today. Risk factor modification highly encouraged. MD JONNA Becerril/khushbu/josé miguel , 01:14 PM , 01:22 PM
[2018-09-23] MEDS: Gemfibrozil 600 MG Tablet PO SCH (08:11)
[2018-09-23] MEDS: Gabapentin 300 MG Capsule PO SCH (08:11)
[2018-09-23] MEDS: Aspirin 325 MG Tablet PO SCH (08:11)
[2018-09-23] MEDS: Finasteride 5 MG Tablet PO SCH (08:11)
[2018-09-23] MEDS: Isosorbide Mononitrate 30 MG ER 24HR Tablet (Imdur) PO SCH (08:11)
--- NOTE | 2018-09-23 10:17 | ECG ---
Date Performed: 09/21/2018 Time Performed: 13:51:16 PTAGE: 68 years EKG: Sinus rhythm MARKED LEFT AXIS DEVIATION MODERATE INTRAVENTRICULAR CONDUCTION DELAY ABNORMAL ECG Left anterior fas cicular block Consider anterolateral ischemia and or injury pattern Clinical correlation is recommend ed NO PREVIOUS TRACING DOCTOR: Agapito Williamson Interpretating Date/Time 09/23/2018 10:16:45
--- NOTE | 2018-09-23 10:58 | P.PNIM ---
Subjective Interval history: Follow-up acute CVA. Patient seen and examined, lying in bed with complaints of left leg sciatica pain. Adjusted pain medications. No other complaints. Slept well. Eating well without any abdominal pain, nausea or vomiting. Vital signs stable. Afebrile. Awaiting [employer] authorization and placement at [facility]. Physical Exam Vital signs: Vital Signs 09/22/18 12:00 09/22/18 16:00 09/22/18 20:00 Temperature 96.1 F L 96.7 F L 97.3 F L Pulse Rate 67 67 64 Respiratory Rate 20 20 18 Blood Pressure 160/72 H 143/78 H 139/63 Pulse Oximetry 96 97 95 09/23/18 00:00 09/23/18 04:00 09/23/18 08:00 Temperature 98.5 F 96.5 F L 97.8 F Pulse Rate 69 67 66 Respiratory Rate 18 18 16 Blood Pressure 165/72 H 125/70 187/89 H Pulse Oximetry 96 95 97 Intake & Output 09/22/18 09/23/18 09/23/18 18:59 06:59 18:59 Intake Total 1120 / 1120 300 / 300 Output Total 850 / 850 700 / 700 Balance 270 / 270 -400 / -400 Weight 109.7 kg Intake: IV 1000 / 1000 NS Inj 1,000 ML @ 70 mls/hr IV. 1000 / 1000 CONT .[id number] MJ Rx#: [id number] Oral 120 / 120 300 / 300 Output: Urine 850 / 850 700 / 700 Stool 0 / 0 Other: # Voids 2 Date of Last Bowel Movement 09/20/18 Results - Labs CBC & Chem 7: 09/21/18 12:15 09/21/18 12:15 Laboratory Results - last 24 hr 09/22/18 09/22/18 09/22/18 05:15 05:15 11:15 POC Glucose Hemoglobin A1c 13.3 H Vitamin B12 301 Folate Greater than 20.0 H RPR Nonreactive 09/22/18 09/23/18 20:39 07:16 POC Glucose 218 H 217 H Hemoglobin A1c Vitamin B12 Folate RPR Assessment and Plan - Assessment (1) Acute CVA (cerebrovascular accident) Code(s): I63.9 - Cerebral infarction, unspecified Status: Acute (2) Facial droop Code(s): R29.810 - Facial weakness Status: Acute (3) Dysarthria Code(s): R47.1 - Dysarthria and anarthria Status: Acute (4) Left leg weakness Code(s): R29.898 - Other symptoms and signs involving the musculoskeletal system Status: Acute - Plan This is a 68-year-old male patient with: Acute CVA -Patient presented with 3-day history of left-sided weakness, dysphagia, dysarthria -Patient does have history of CVA in December 2017, patient is not on any antiplatelet treatment at this time. Patient did have residual symptoms of right-sided weakness. -CT of the brain did indicate an old lacunar infarct in the left thalamus, nothing acute -CTA of the head and neck does not indicate any acute abnormality -MRI of the brain indicated small area of acute infarction involving the posterior limb of the internal capsule on the right. -ECHO reviewed showing adequate EF, some LVH. There is trace tricuspid valve regurgitation. -Neurology is consulted, appreciate input and recommendations. -Laboratory studies to include B12, folate, sed rate, TSH, hemoglobin A1c, lipid panel, RPR added. -PT/OT/ST evaluations. -Holter monitor. -Continue full dose aspirin. Diabetes, uncontrolled -Hemoglobin A1c 13.3. -We will start diabetic diet once cleared by speech therapy -Accu-Cheks with sliding scale insulin Hypertension, hyperlipidemia -Uncontrolled lipids. -Resume statin Chronic back pain -Resume home medications DVT prevention -Sequential compression devices Discharge Planning: Awaiting [employer] authorization and [place] placement.
[2018-09-24] MEDS: Sod Chloride 0.9% Inj 1,000 ML IV.CONT SCH (00:28)
[2018-09-24] MEDS: Morphine Sulfate Inj 2 MG/ML Vial IV.PUSH PRN (06:17)
[2018-09-24] MEDS: Finasteride 5 MG Tablet PO SCH (08:40)
[2018-09-24] MEDS: Isosorbide Mononitrate 30 MG ER 24HR Tablet (Imdur) PO SCH (08:41)
[2018-09-24] MEDS: Aspirin 325 MG Tablet PO SCH (08:41)
[2018-09-24] MEDS: Gemfibrozil 600 MG Tablet PO SCH (08:41)
[2018-09-24] MEDS: Gabapentin 300 MG Capsule PO SCH (08:43)
[2018-09-24] MEDS: Insulin NovoLOG Aspart Correctional Sugar Inj SQ PRN (08:44)
[2018-09-24 09:58] VITALS: RESP 20; O2SAT 95
--- NOTE | 2018-09-24 11:44 | P.DS ---
Date of admission: 09/21/18 15:32 Primary care physician: UNKNOWN Anticipated date of discharge: 09/24/18 Brief History from admission: 68-year-old male with known history of CVA, hypertension, hyperlipidemia, diabetes, chronic back pain who presented to the hospital for evaluation of fall at home today. Patient does not speak much Croatian, information was taken from medical records, nursing staff, interpreted by Enrrique zheng. Patient does have a long-standing history of chronic medical illnesses with chronic back pain, recent stroke in December of this year. Patient is originally from [place] and is here at this time. Apparently he has been having problems with his chronic back pain and he went to [facility] week ago in [place] was discharged home. Then roughly 3 days ago he noticed that he had worsening neurological symptoms with difficulty in speech, difficulty eating and swallowing food, weakness of the left upper and lower extremities. Patient's previous stroke left him with residual weakness of the right upper and lower extremities. As indicated by ER physician that family said that they noted she was not able to keep food in his mouth and water was dripping out of his mouth. However patient was trying to walk today and he fell so they brought him to the hospital for evaluation. Patient had CT scans done which were unremarkable for any acute stroke. It is recommended that the patient be admitted the hospital for further neurological workup. Patient update on day of discharge: Follow-up CVA. Patient and examined, lying in bed comfortably no apparent distress. Niece at bedside assisting with translation. He is Micronesian- speaking. Denies any acute events overnight. He does complain of some back pain relieved with current pain regimen. Eating well without any nausea or vomiting. On a mechanical soft diet. Patient to be discharged to [facility] today. Blood pressure elevated, continued on home medications. DS: Diagnosis - Discharge Diagnosis (1) Acute CVA (cerebrovascular accident) Status: Acute (2) Facial droop Status: Acute (3) Dysarthria Status: Acute (4) Left leg weakness Status: Acute DS: Medications - Discharge Medications Prescriptions: aspirin 325 mg PO DAILY #30 tab DS: Summary Hospital Course: This is a 68-year-old male patient with acute CVA. Patient presented with 3-day history of left-sided weakness, dysphagia, dysarthria. Patient does have history of CVA in December 2017, patient is not on any antiplatelet treatment at this time. Patient did have residual symptoms of right-sided weakness. CT of the brain did indicate an old lacunar infarct in the left thalamus, nothing acute. CTA of the head and neck does not indicate any acute abnormality. MRI of the brain indicated small area of acute infarction involving the posterior limb of the internal capsule on the right. ECHO reviewed showing adequate EF, some LVH. There is trace tricuspid valve regurgitation. Neurology was consulted, followed during hospitalization. PT/OT/ST evaluation during hospitalization. Full dose aspirin. Diabetes, uncontrolled at home. Hemoglobin A1c 13.3. Diabetic diet. Accu-Cheks with sliding scale insulin. History of hypertension and hyperlipidemia and chronic back pain. DC to rehab. RX as written. Diabetic diet with mechanical soft food and thin liquids. Activity as tolerated. Stable on DC. - Time Spent with Patient Total time spent providing and/or coordinating discharge services: Greater than 30 minutes - Quality: VTE Deep Vein Thrombosis/Pulmonary Embolism Present on Admission: No Exam Vital signs: Vital Signs 09/23/18 12:00 09/23/18 16:00 09/23/18 20:00 Temperature 97.7 F 98.0 F 96.1 F L Pulse Rate 56 L 65 66 Respiratory Rate 18 18 18 Blood Pressure 105/54 L 130/62 113/58 L Pulse Oximetry 94 L 95 97 09/24/18 00:00 09/24/18 04:00 09/24/18 08:00 Temperature 96.8 F L 96.4 F L 97.9 F Pulse Rate 58 L 58 L 63 Respiratory Rate 17 18 20 Blood Pressure 161/89 H 147/69 H 180/82 H Pulse Oximetry 100 98 95 Intake & Output 09/23/18 09/24/18 09/24/18 18:59 06:59 18:59 Intake Total 925 / 925 500 / 500 Output Total 200 / 200 Balance 725 / 725 500 / 500 Intake: IV 500 / 500 500 / 500 NS Inj 1,000 ML @ 70 mls/hr IV. 500 / 500 500 / 500 CONT .[id number] MJ Rx#: [id number] Oral 425 / 425 Output: Urine 200 / 200 Other: # Voids 1 Date of Last Bowel Movement 09/20/18 Narrative: GENERAL: Well-developed, well-nourished patient in NAD. Micronesian speaking. SKIN: Warm and dry. No rash. HEAD: Normocephalic. Atraumatic. EYES: Pupils equal and round. No scleral icterus. No injection or drainage. ENT: No nasal bleeding or discharge. Mucous membranes pink and moist. NECK: Supple. Trachea midline. CARDIOVASCULAR: Regular rate and rhythm. S1, S2 noted. No murmur appreciated. RESPIRATORY: No accessory muscle use. Clear to auscultation. Breath sounds equal bilaterally. GASTROINTESTINAL: Abdomen soft, non-tender, nondistended. Normoactive bowel sounds x4. MUSCULOSKELETAL: No obvious deformities. Extremities without clubbing, cyanosis , or edema. NEUROLOGICAL: Awake and alert. No obvious cranial nerve deficits. Motor grossly within normal limits. 5/5 muscle strength in bilateral upper and lower extremities. Normal speech. PSYCHIATRIC: Appropriate mood and affect; insight and judgment normal. Results Procedures completed during hospitalization: See above. Labs on day of discharge: Labs from last 24 hours 09/24/18 09/23/18 09/23/18 07:45 20:54 16:46 POC Glucose 194 H 232 H 196 H TSH 09/23/18 09/22/18 11:43 00:00 POC Glucose 241 H TSH 0.956 - Impressions ITS Impressions Chest X-Ray 09/21/18 12:42 CONCLUSION: No acute abnormality is seen. Head CT 09/21/18 12:42 CONCLUSION: 1. No acute abnormality is seen. 2. Mild atrophy. 3. Suspected old lacunar infarct at the left thalamus. . Head CTA 09/21/18 12:42 CONCLUSION: Negative CTA of the head. . Knee X-Ray 09/21/18 12:42 CONCLUSION: No acute abnormality. Neck CTA 09/21/18 12:42 CONCLUSION: Mild plaque at the carotid bulb regions without a significant stenosis. Head MRI 09/21/18 14:53 CONCLUSION: 1. Small area of acute infarction involving the posterior limb of the internal capsule on the right. 2. Old lacunar infarct at the left thalamus. 3. Mild atrophy. 4. Scattered areas of demyelination likely secondary to small vessel ischemic change. Discharge Plan - Discharge Disposition Patient Disposition: [facility] Inpatient - Discharge Condition Condition: Stable - Discharge Order Discharge Orders: Discharge Order (Routine); Ordered 09/22/18 Ordered By: Royce Cagle ED Use Only Admit Order (Routine); Ordered 09/21/18 Ordered By: Jania Bey - Discharge Details Anticipated Discharge Date: 09/22/18 Discharge Comment: OK to discharge to [facility] once seen by speech therapy and arrangements made by case management - Physicians Team Primary Care Provider: UNKNOWN, Attending Provider: Perico Richards Other Providers: Janet Beatty MD
[2018-09-24 12:16] VITALS: BP 133/69; PULSE 66; TEMP 97.8
--- NOTE | 2018-09-24 23:23 | HM ---
Date Performed: 09/22/2018 Time Performed: 18:19:00 HOOKUP DATE: 09/22/18 06:19:00 PM Mon ANALYSIS START TIME: 09/22/2018 6:24:00 PM ANALYSIS END TIME: 09/23/2018 6:28:00 PM PATIENT AGE: 68 PATIENT HEIGHT: 70 PATIENT WEIGHT: 249 DRUG LIST: ROOM 8312 PATIENT DIAGNOSIS: DYSARTHIA FACIAL DROOP TEST NARRATIVE: The patient's average heart rate was 66 BPM. No episodes of tachycardia wer e noted. Heart rates less than 50 BPM were noted < 1% of the time. One pause of 2.0 seconds occu rred at 11:18 PM. 92 ventricular ectopics, which represented < 1% of the total beat count, were n oted. The highest ventricular ectopic frequency occurred from 01:00 AM to 02:00 AM Tue. During this time 13 VE(s) occurred. Ventricular ectopics were observed as 92 isolated beat(s) only. No couplet s or runs were noted. 18 supraventricular ectopics, which represented < 1% of the total beat coun t, were noted. The highest supraventricular ectopic frequency occurred from 05:00 AM to 06:00 AM Tue . During this time 4 SVE(s) occurred. No episodes of ST depression (defined as -1.0 mm or more) were noted in channel 1. No episodes of ST depression (defined as -1.0 mm or more) were noted in elia nnel 2. No episodes of ST depression (defined as -1.0 mm or more) were noted in channel 3. NO DIARY ENTRIES WERE RECORDED BY PATIENT TEST INTERPRETATION: Normal Sinus rhythm with occasional sinus bradycardia. Intermittent Mobitz type 2, second degree AV block. Occasional P VC(s) and occasional APC(s). No atrial fibrillation or prolonged pauses noted. Signed by : Marvel Victor
== END 2018-09-24 12:20 ==
LOC: PHEDA 12:11 → PHED 12:11 → PH3 17:21
PROVIDERS: ADMIT Hospitalist; ATTEND Hospitalist